=== PATIENT | male | born 1955 | race Caucasian/White ===

== ENCOUNTER 2017-06-15 09:00 | Inpatient (IN) | payer OTHER ==
[2017-06-26] MEDS ORDERED: CELECOXIB 100 MG CAPSULE PO ONE (06:00)
[2017-06-26] MEDS ORDERED: MECLIZINE 25 MG TABLET PO ONE (06:00)
[2017-06-26] MEDS ORDERED: CEFAZOLIN 2 Gram 2 GM/50 ML BAG IVPB ONE (06:00)
[2017-06-26] MEDS ORDERED: VANCOMYCIN HCL 1,000 MG in 0.9 % SODIUM CHLORIDE 250ML 250 ML IVPB ONE (06:00)
[2017-06-26] MEDS ORDERED: METOCLOPRAMIDE 10 MG TABLET PO ONE (06:00)
[2017-06-26] MEDS ORDERED: FAMOTIDINE 20MG TABLET PO ONE (06:00)
[2017-06-26 07:45] LABS: ABO GROUP A; ANTIBODY SCREEN NEGATIVE (NEGATIVE); RH TYPE NEGATIVE
[2017-06-26] MEDS ORDERED: AL HYDROX/MAG HYDROX 30ML UD PO PRN (10:59)
[2017-06-26] MEDS ORDERED: HYDROCODONE/APAP 10/325 TABLET PO PRN (10:59)
[2017-06-26] MEDS ORDERED: NALOXONE 0.4 MG/1 ML VIAL IVP PRN (10:59)
[2017-06-26] MEDS ORDERED: ONDANSETRON HCL IV 4 MG/2 ML VIAL IVP PRN (10:59)
[2017-06-26] MEDS ORDERED: MAGNESIUM HYDROXIDE 30 ML UDC PO PRN (10:59)
[2017-06-26] MEDS ORDERED: DIPHENHYDRAMINE HCL 25 MG CAPSULE PO PRN (10:59)
[2017-06-26] MEDS ORDERED: KETOROLAC 30 MG/ML VIAL IVP PRN ×2 (10:59)
[2017-06-26] MEDS ORDERED: BISACODYL 10 MG SUPP RC PRN (10:59)
[2017-06-26] MEDS ORDERED: ZOLPIDEM TARTRATE 5 MG TABLET PO PRN (10:59)
[2017-06-26] MEDS ORDERED: ACETAMINOPHEN 325 MG TAB PO PRN (10:59)
[2017-06-26] MEDS ORDERED: HYDROMORPHONE HCL 1MG/ML **SYRINGE IM PRN (10:59)
[2017-06-26] MEDS ORDERED: ACETAMINOPHEN W/ CODEINE 300MG/60MG TABLET PO PRN ×2 (10:59)
[2017-06-26] MEDS ORDERED: HYDROMORPHONE HCL 2 MG/ML VIAL IM PRN (10:59)
[2017-06-26] MEDS ORDERED: TRAMADOL HCL 50 MG TABLET PO PRN (10:59)
[2017-06-26] MEDS ORDERED: TRANEXAMIC ACID 1,000 MG/10 ML ML IV ONE (13:34)
--- NOTE | 2017-06-26 14:09 | Rehab Evaluation ---
Patient Information - Patient Information Diagnosis: DJD L knee Ordered Treatment: PT Evaluate and Treat Status: Initial Evaluation Surgery: Yes Date of Surgery: 06/26/17 Past Medical/Surgical Hx: PAST MEDICAL/SURGICAL HISTORY Past Surgical History left knee ACL 1988; left knee arthrotomy; tonsillectomy;colonoscopy. cardiac catheterization 2010. PMH - Respiratory Hx Respiratory Disorders Yes Hx Asthma No Hx Bronchitis No Hx Chronic Obstructive Yes: mild Pulmonary Disease (COPD) Hx Dyspnea No Hx Pneumonia No Hx Pulmonary Embolism No Hx Sleep Apnea Yes Hx Tuberculosis No Hx of CPAP Yes Hx of URI No PMH - Cardiovascular Hx Cardiovascular Disorders Yes Hx Abnormal EKG No Hx Cardiac Catheterization Yes Hx Chest Pain No Hx Congestive Heart Failure No Hx Deep Vein Thrombosis No Hx Edema No Hx Heart Attack No Hx Hypertension Yes: meds good control Hx Hypotension No Hx Irregular Heartbeat No Hx Palpitations No Hx Pacemaker/Defibrillator No Hx Vascular Disease Yes: 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 Hx Coronary Artery Disease Yes: chronically occluded RCA with collaterals Exercise Tolerance Good Hx Transient Ischemic Attacks No (TIA) Comment: golfs alot PMH - Neuro Hx Neurological Disorders Yes Hx Brain Tumor No Hx Cerebrovascular Accident No Hx Dementia No Hx Dizziness Yes: late afternoon from BP pill Hx Headaches No Hx Neuropathy No Hx Parkinson's Disease No Hx Seizures No Hx Speech Problem No Hx Syncope No Hx Transient Ischemic Attacks No (TIA) PMH - GI Hx Gastrointestinal Disorders No PMH - Hx Genitourinary Disorders No PMH - Endocrine Hx Endocrine Disorders No Hx Diabetes No Hx Thyroid Disease No PMH - Musculoskeletal Hx Musculoskeletal Disorders Yes Hx Arthritis Yes: knees/lt ankle Hx Back Injury No Hx Fibromyalgia No Hx Gout No Hx Musculoskeletal Disease No Hx Osteoporosis No Comment: lately rt hip pain from compensating knee pain PMH - Psych Hx Psychiatric Problems No PMH - Hematology/Oncology Hx Hematology/Oncology No Disorders Premorbid Status: Detail (The patient was independent with all mobility.) Social History: Detail ( The patient lives in a one story with a basement with his father with 2 steps and no railings at the enterance. The patient's bathroom is equipped with tub/shower combination and regular toilet with grab bars. The patient has a standard walker and single point cane.) Precautions: [place], Other (WBAT on the L LE) - Time With Patient Total Time Spent With Patient (Min): 30 Treatment Procedures: Detail (Initial Evaluation, bed mobility) Subjective Information - Subjective Information Per Patient (The patient had no complaints of knee pain.) Objective Data - Mental Status Patient Orientation: Oriented x3 - Visual Perception Appears within normal limits for therapeutic activities - ROM Not within normal limits (L knee flexion was aprox. 80 degrees, extension 0 degrees. All other AROM was WNL.) - Strength/Tone Not within normal limits (The patient's R LE strength was generally 4+ to 5/5. The patient's L LE strength was not tested secondary to status post surgery however the patient's strength was functional ie: the patient could complete a SLR.) - Bed Mobility Independent (The patient was independent with supine to and from sit transfer and scooting up in bed.) - Transfers Independent (The patient is independent with sit to and from stand transfer.) - Balance Balance Sitting: Good Balance Standing: Fair (The patient required the support of walker for standing due to numbness in LE's) - Sensation Deficit (The patient reports his LE's were numb. The patient had diminished sensation to light touch B LE's from knee to toes.) - Gait Detail (The patient stood x 1 minute but did not ambulate due to LE numbness.) Patient Education - Patient Education Teaching Topic: Exercise/Activity (The patient completed LE strengthening and AROM exercises including, SLR, quad sets, gluteal sets, hamstring sets, ankle pumps, heel slides all x 10 reps.) Response: Unable to Comprehend Teaching Method: Demonstration, Handout Teaching Recipient: Patient Barriers To Learning: None Problem List - Problem List Physical Therapy Problem List: Detail (1) Nonambulatory 2) Decreased strength and AROM following L LE.) Goals - Goals Physical Therapy Goals: 1) The patient will ambulate with assistive device on levels and stairs independently WBAT on the L LE. 2)The patient will be independent with all transfers. 3) The patient will be independent with HEP. Prognosis - Prognosis Good Plan - Plan Physical Therapy Plan: PT M-F 2 times a day for gait training, transfer training , bed mobility , instruction in HEP.
[2017-06-26] MEDS ORDERED: HYDROMORPHONE HCL 2 MG/ML VIAL IV ONE (15:01)
[2017-06-26] MEDS ORDERED: FENTANYL PF 100MCG/2ML VIAL IV ONE (15:01)
[2017-06-26] MEDS ORDERED: PROPOFOL 10 MG/ML VIAL IV ONE (15:01)
[2017-06-26] MEDS ORDERED: *PACU ONLY* KETAMINE HCL 10 MG/ML (20ML) VIAL IV ONE (15:01)
[2017-06-26] MEDS ORDERED: MIDAZOLAM HCL 2MG/2ML VIAL IV ONE (15:01)
[2017-06-26] MEDS: POTASSIUM CHLORIDE/D5-0.9%NACL 20 MEQ/1,000 ML BAG IV SCH (17:09)
[2017-06-26] MEDS ORDERED: PATIENT OWN MED: LISINOPRIL 5 MG PO SCH (18:00)
[2017-06-26] MEDS ORDERED: PATIENT OWN MED: PRAVASTATIN 80 MG PO SCH (18:00)
[2017-06-26] MEDS ORDERED: ASPIRIN 81 MG TABEC PO SCH (18:00)
[2017-06-26] MEDS ORDERED: METOPROLOL SUCCINATE 50 MG PO SCH (18:00)
--- NOTE | 2017-06-26 19:44 | Operative Note ---
DATE: 06/26/2017 PREOPERATIVE DIAGNOSIS: END-STAGE ARTHROSIS OF THE LEFT KNEE. POSTOPERATIVE DIAGNOSIS: END-STAGE ARTHROSIS OF THE LEFT KNEE. PROCEDURE: 1. A cemented left total knee arthroplasty with [employer]shine II components, with a size 7 Oxinium femur, size 7 stemmed tibial base plate, 9 mm lipped tibial insert, and a 35 mm all-plastic patella. 2. Removal of deep buried hardware left proximal tibia. STAFF SURGEON: MYESHA SUN M.D. ANESTHESIA: SPINAL. PREPARATION: CHLORAPREP. INDIVIDUAL CONSIDERATIONS: This is not a standard procedure. This patient had a previous ACL reconstruction. This resulted in abundant scarring, which made dissection and exposure more difficult and time consuming. PROCEDURE: The patient was taken to the Operating Room and placed supine on the operating table. He had a successful induction with spinal anesthetic. His leg was then prepped and draped in the usual fashion. The patient had a midline approach to the knee incorporating the previous incision. Sharp dissection carried down through the skin and subcutaneous tissues. Small veins were coagulated with a Bovie. A medial arthrotomy was performed. The patella was everted and the knee was flexed. The patient had abundant scar within the knee. Fat pad was resected. The ACL, which had been reconstructed and was still intact, was resected. The capsule was released from the medial proximal tibia and provisional anterior meniscectomies were performed. The patient's proximal tibial screw was identified. I had to extend the skin incision distally and then periosteally elevate the proximal tibia and found the end of the screw. I used an osteotome to chip bone off the top of the screw and remove the interference screw distally on the tibia. I then placed an intramedullary femoral airline pilot flight instructor hole. The intramedullary femoral cutting jig was placed. It was cut in 7.0 degrees of valgus and adjusted for rotation and secured with pins for a 10 mm resection. The initial transverse cut was then made. A skin guide was placed in the anterior and posterior airline pilot flight instructor holes and it was found that a size 7 would be appropriate. The anterior and posterior cuts followed by chamfer cuts were made, osteophytes were removed, and a size 7 trial was found to fit well. The tibia was brought forward and the remainder of the meniscal remnants were removed with a Bovie along with multiple intraarticular loose bodies. The extraarticular tibial cutting jig was placed. It was cut in neutral with a three -degree AP slope. Care was taken to adjust for rotation and flexion using the extraarticular alignment guide and bony landmarks. It was set for a 9 mm resection, keyed off the high lateral side, and secured with pins. When cutting the tibia, care was taken to preserve the PCL insertion on the tibia. Large medial osteophytes were removed but I was able to still fit a size 7 baseplate. It was adjusted for rotation and secured with pins. With a 9 mm trial and the femoral trial, there was excellent motion and stability. Ligamentous balance, rotation, and alignment were thought to be normal. The femoral airline pilot flight instructor holes were impacted and the triflange tibial stamp was impacted and these trial components were removed. The patient had a thick patella and roughly 9 mm of bone was removed freehand. The tourniquet was let down briefly to get bleeders posteriorly and then placed back up again. The knee was then thoroughly irrigated out with pulsatile Betadine and saline to remove any visual or palpable debris. The bony surfaces were then dried. A size 7 stem tibial baseplate was cemented into place followed by impaction of a 9 mm lift tibial insert followed by cementing in the size 7 Oxinium femur followed by cementing in the 35 mm all-plastic patella. Implant surfaces were compressed and after the excess cement was removed and after the cement had set, there was excellent motion and stability. Ligamentous balance, rotation, alignment, and patellofemoral tracking were normal. The knee was then thoroughly irrigated out again with pulsatile Betadine and saline. The tourniquet was let down and hemostasis was obtained with a Bovie. 30 mL of 0.75 % Marcaine with Epinephrine was infiltrated around the periosteum of the distal femur and proximal tibia and the skin and subcutaneous tissue. After irrigation , the capsule then closed with a running #2 Quill, the subcutaneous was closed in layers with a running 0 Quill, and the skin was closed with perry. The patient did receive a gram of Tranexamic Acid IV preoperatively. I mixed a gram of Tranexamic Acid with the 30 mL of saline injected into the knee through a sterile #18 gauge needle and a sterile Bulkee compressive Aquacel-type dressing was applied. The patient tolerated the procedure well. Needle and sponge counts were correct, estimated blood loss was minimal, and he was taken back to Recovery in good condition. There were no complications. JOB NUMBER: [id number] MTDD
[2017-06-26] MEDS: DOCUSATE SODIUM 100 MG CAPSULE PO SCH ×2 (20:05→21:51)
[2017-06-26] MEDS: VANCOMYCIN HCL 1,000 MG in 0.9 % SODIUM CHLORIDE 250ML 250 ML IVPB SCH (20:05)
[2017-06-26] MEDS: HYDROCODONE/APAP 10/325 TABLET PO PRN (22:14)
[2017-06-27] MEDS: POTASSIUM CHLORIDE/D5-0.9%NACL 20 MEQ/1,000 ML BAG IV SCH (03:29)
[2017-06-27 06:36] LABS: HEMATOCRIT 41.4 % (42.0-52.0); HEMOGLOBIN 13.2 gm/dl (14.0-18.0)
[2017-06-27 06:53] LABS: BLOOD UREA NITROGEN 16 mg/dL (6-20); CREATININE 0.9 mg/dL (0.7-1.2); EST GLOMERULAR FILTRATION RATE > 60 mL/min; GLUCOSE,RANDOM 113 mg/dL (74-109)
[2017-06-27] MEDS: VANCOMYCIN HCL 1,000 MG in 0.9 % SODIUM CHLORIDE 250ML 250 ML IVPB SCH (07:41)
[2017-06-27] MEDS: HYDROCODONE/APAP 10/325 TABLET PO PRN (08:08)
[2017-06-27] MEDS: DOCUSATE SODIUM 100 MG CAPSULE PO SCH (09:51)
[2017-06-27] MEDS ORDERED: FERROUS SULFATE 325 MG TAB PO SCH (10:00)
[2017-06-27] MEDS ORDERED: PNEUM 23-VAL ADULT IM ONE (10:00)
[2017-06-27] MEDS ORDERED: RIVAROXABAN 10 MG TABLET PO SCH (10:00)
--- NOTE | 2017-06-27 11:34 | Physical Therapy Tx Note ---
Physical Therapy Tx Note - Treatment Note Tolerated: Good (Patient is doing extremely well with mobility and willing to get up and walk, try steps. Knee a little stiff and pain yet with exercises. Able to ambulate with standard walker 50 feet to stairs, go down three steps then back up three steps with no difficulty. Wants to go home this afternoon after lunch.) Total Time Spent With Patient: 30 Physical Therapy Tx Note: Detail (Patient seen bedside, supine to sit to stand with very little assist with right leg after removed cryocuff and compressive stockings. Sit to stand independently and ambulated with standard walker, WBAT to bathroom, used commode standing up then washed hands and able to walk in [place] about 50 feet to stairs, ambulated down three steps with rail and folded walker then pivoted around and ambulated back up three steps with folded walker and rail. Ambulated back to room and worked on knee exercises with good tolerance but knee quite stiff today. Suggested when sits up in chair to really work on bending and straightening leg.) Physical Therapy Problem List: Detail (1) Nonambulatory 2) Decreased strength and AROM following L LE.) Physical Therapy Goals: 1) The patient will ambulate with assistive device on levels and stairs independently WBAT on the L LE. 2)The patient will be independent with all transfers. 3) The patient will be independent with HEP. Prognosis: Good (Patient doing extremely well and should be able to go home right after lunch as has passed skills for exercises, gait, stairs, mobility.) Physical Therapy Plan: PT M-F 2 times a day for gait training, transfer training , bed mobility , instruction in HEP.
--- NOTE | 2017-06-27 11:46 | Rehab Evaluation ---
Patient Information - Patient Information Diagnosis: DJD L knee Ordered Treatment: OT Evaluate and Treat Status: Initial Evaluation Surgery: Yes Date of Surgery: 06/26/17 Past Medical/Surgical Hx: PAST MEDICAL/SURGICAL HISTORY Past Surgical History left knee ACL 1988; left knee arthrotomy; tonsillectomy;colonoscopy. cardiac catheterization 2010. 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 Hx Coronary Artery Disease Yes: chronically occluded RCA with collaterals Exercise Tolerance Good Hx Transient Ischemic Attacks No (TIA) Comment: golfs alot PMH - Neuro Hx Neurological Disorders Yes Hx Brain Tumor No Hx Cerebrovascular Accident No Hx Dementia No Hx Dizziness Yes: late afternoon from BP pill Hx Headaches No Hx Neuropathy No Hx Parkinson's Disease No Hx Seizures No Hx Speech Problem No Hx Syncope No Hx Transient Ischemic Attacks No (TIA) PMH - GI Hx Gastrointestinal Disorders No PMH - Hx Genitourinary Disorders No PMH - Endocrine Hx Endocrine Disorders No Hx Diabetes No Hx Thyroid Disease No PMH - Musculoskeletal Hx Musculoskeletal Disorders Yes Hx Arthritis Yes: knees/lt ankle Hx Back Injury No Hx Fibromyalgia No Hx Gout No Hx Musculoskeletal Disease No Hx Osteoporosis No Comment: lately rt hip pain from compensating knee pain PMH - Psych Hx Psychiatric Problems No PMH - Hematology/Oncology Hx Hematology/Oncology No Disorders Premorbid Status: Detail (The patient was independent with all mobility.) Social History: Detail ( The patient lives in a one story with a basement with his father with 2 steps and no railings at the enterance. The patient's bathroom is equipped with tub/shower combination and regular toilet with grab bars. The patient has a standard walker and single point cane.) Precautions: [place], Other (WBAT on the L LE) - Time With Patient Total Time Spent With Patient (Min): 15 Treatment Procedures: Detail (eval OT low) Subjective Information - Subjective Information Per Patient (Pt wanting to go home as soon as possible.) Objective Data - Pain Pain Present: Yes Pain Intensity: 3 (L knee) Pain Scale Used: Numeric (1 - 10) - Mental Status Patient Orientation: Oriented x3 - Visual Perception Appears within normal limits for therapeutic activities - ROM Within normal limits (BUE's) - Strength/Tone Within normal limits (BUE's) - Coordination Appears within normal limits for therapeutic activities - Bed Mobility Independent - Transfers Independent - Balance Balance Sitting: Good - Sensation Intact - ADL's/IADL's Detail (Pt educated on drsg techniques for LB drsg. Pt verbalized and demonstrated ind. w/ boxers/pant don. Will have assistance w/ shoes if needed but pt able to reach feet w/ no issues. Do not anticipate this being a problem. Nsg wanting to change bandage so pt not wanting to put shoes on at the time. Pt' s father present during eval and also states that he will help should pt have an issue with it later. Pt also able to verbalize understanding of wrapping techniques for showering to avoid saturation of incision w/ water and prevent infection.) Therapy Assessment - Therapy Assessment Detail (Pt doing very well and is Ind. w/ LB drsg. Pt does not require further OT services.) Patient Education - Patient Education Teaching Topic: Equipment Use (drsg techniques) Response: Return Demonstration Teaching Method: Discussion Teaching Recipient: Patient, Family (Pt's father present) Barriers To Learning: None Problem List - Problem List Physical Therapy Problem List: Detail (1) Nonambulatory 2) Decreased strength and AROM following L LE.) Goals - Goals Physical Therapy Goals: 1) The patient will ambulate with assistive device on levels and stairs independently WBAT on the L LE. 2)The patient will be independent with all transfers. 3) The patient will be independent with HEP. Prognosis - Prognosis Good Plan - Plan Physical Therapy Plan: PT M-F 2 times a day for gait training, transfer training , bed mobility , instruction in HEP. Occupational Therapy Plan: No further OT needed. Pt to be discharged from OT.
--- NOTE | 2017-06-27 14:16 | Physical Therapy Tx Note ---
Physical Therapy Tx Note - Treatment Note Tolerated: Good (Patient has passed all goals to be discharged safely home.) Total Time Spent With Patient: 0 Physical Therapy Tx Note: Detail (No treatment done in pm, patient discharged home.) Physical Therapy Problem List: Detail (1) Nonambulatory 2) Decreased strength and AROM following L LE.) Physical Therapy Goals: 1) The patient will ambulate with assistive device on levels and stairs independently WBAT on the L LE. 2)The patient will be independent with all transfers. 3) The patient will be independent with HEP. Prognosis: Good (All goals met, no treatment done in pm today.) Physical Therapy Plan: PT M-F 2 times a day for gait training, transfer training , bed mobility , instruction in HEP.
--- NOTE | 2017-06-27 17:15 | Discharge Summary ---
DATE OF ADMISSION: 06/26/17 DATE OF DISCHARGE: 06/27/17 DATE OF SURGERY: 06/26/17 HISTORY: Mr. Kate is a delightful 61-year-old male who presents with profound end-stage arthrosis of his left knee. He was admitted after left total knee arthroplasty. Postoperatively, he did well. His hospital course was unremarkable. DISCHARGE INSTRUCTIONS: The plan is to discharge him to home to the care of his family. He will do outpatient physical therapy. He will follow-up in my office in two weeks for suture removal. He will be given Xarelto for 15 days for DVT prophylaxis but he will also continue with his chronic daily Aspirin. His discharge hemoglobin was 13.2 and did not require transfusion. FINAL DIAGNOSIS/PRIMARY DIAGNOSIS: END-STAGE ARTHROSIS OF THE LEFT KNEE. OPERATIONS AND PROCEDURES: CEMENTED LEFT TOTAL KNEE ARTHROPLASTY. DISCHARGE CONDITION: GOOD. cc: Dr. Randy Rhodes JOB NUMBER: [id number] MTDD
== END 2017-06-27 12:40 | disposition home or self-care (01) | DRG 470 ==
LOC: MEDSURG 06-26 06:46
PROVIDERS: ADMIT Orthopaedic Surgery; ATTEND Orthopaedic Surgery
PROC: 0YPB0YZ Removal of Other Device from Left Lower Extremity, Open Approach (ICD-10-PCS; 2017-06-26)
PROC: 0SRD069 Replacement of Left Knee Joint with Oxidized Zirconium on Polyethylene Synthetic Substitute, Cemented, Open Approach (ICD-10-PCS; principal; 2017-06-26 09:00)
DX: M17.12 Unilateral primary osteoarthritis, left knee (principal); I10 Essential (primary) hypertension; Z72.0 Tobacco use; Z96.89 Presence of other specified functional implants
CPT/HCPCS: 80048; 85014; 85018; 86850; 86900; 86901; 97110; 97116; 97165; J1885; J3480; J7050